=== PATIENT | female | born 1995 | race Hispanic/Latino ===

== ENCOUNTER 2022-03-10 19:53 | Inpatient (IN) | payer OTHER ==
[2022-03-10] MEDS ORDERED: ASPIRIN 325 MG TAB PO ONE (20:30)
[2022-03-10] MEDS ORDERED: ONDANSETRON 4 MG/2 ML INJ IV ONE (20:40)
[2022-03-10] MEDS ORDERED: HYDROmorphone 1 MG/1 ML INJ IV ONE (20:40)
[2022-03-10] MEDS ORDERED: SODIUM CHLORIDE 0.9% 1000 ML 1,000 ML IV ONE (20:42)
--- NOTE | 2022-03-10 20:42 | Emergency Department Report ---
ED Abdominal Pain HPI - General Chief Complaint: Arrhythmia/Palpitations Stated Complaint: SENT FROM DR VARELA PUI?: No Time Seen by Provider: 03/10/22 20:37 Source: patient, family Mode of arrival: Ambulatory Limitations: No Limitations - History of Present Illness Initial Comments: Patient is a 27-year-old female presents emergency room for bilateral flank pain, UTI symptoms, dysuria, fever. Patient states that her symptoms started this morning at 9 AM. Patient states her symptoms worsen. Patient states she went to urgent care at 6 PM and the patient had an EKG because of her heart rate done and a showed A. fib RVR. Patient presented with the EKG from the urgent care. Patient states she had a history of A. fib when she was 18 years old but never required treatment. Patient denies chest pain or shortness of breath. Patient denies recent travel. Patient denies recent international travel. Patient denies exposure to the novel coronavirus. Patient denies sick contacts. . Patient denies cough. Patient denies coming in contact with anybody with symptoms of the novel coronavirus. MD Complaint: abdominal pain -: Sudden Location: L flank, R flank Radiation: none Migration to: no migration Severity: severe Severity scale (0 -10): 10 Quality: stabbing Consistency: constant Improves With: rest Worsens With: movement Associated Symptoms: nausea, vomiting, diarrhea, fever, chills, dysuria. denies: constipation, hematemesis, hematochezia, melena, hematuria, syncope Treatments Prior to Arrival: NSAIDs - Related Data LMP (females 10-50): last week Allergies Allergy/AdvReac Type Severity Reaction Status Date / Time No Known Allergies Allergy Verified 03/10/22 21:24 ED Review of Systems ROS: Stated complaint: SENT FROM DR VARELA Other details as noted in HPI Constitutional: denies: chills, fever Eyes: denies: eye pain, eye discharge, vision change ENT: denies: ear pain, throat pain Respiratory: denies: cough, shortness of breath, wheezing Cardiovascular: denies: chest pain, palpitations Endocrine: no symptoms reported Gastrointestinal: as per HPI, abdominal pain, nausea, vomiting Genitourinary: as per HPI, dysuria. denies: urgency, discharge Musculoskeletal: denies: back pain, joint swelling, arthralgia Skin: denies: rash, lesions Neurological: denies: headache, weakness, paresthesias Psychiatric: denies: anxiety, depression Hematological/Lymphatic: denies: easy bleeding, easy bruising ED Past Medical Hx - Past Medical History Previous Medical History?: Yes Additional medical history: A. fib - Surgical History Past Surgical History?: No - Family History Family history: no significant - Social History Smoking Status: Never Smoker Substance Use Type: Alcohol, Marijuana ED Physical Exam - General Limitations: No Limitations General appearance: alert, in no apparent distress - Head Head exam: Present: atraumatic, normocephalic - Eye Eye exam: Present: normal appearance - ENT ENT exam: Present: mucous membranes moist - Neck Neck exam: Present: normal inspection - Respiratory Respiratory exam: Present: normal lung sounds bilaterally. Absent: respiratory distress - Cardiovascular Cardiovascular Exam: Present: regular rate, normal rhythm. Absent: systolic murmur, diastolic murmur, rubs, gallop - GI/Abdominal GI/Abdominal exam: Present: soft, tenderness, normal bowel sounds. Absent: distended, guarding, rebound - Extremities Exam Extremities exam: Present: normal inspection - Back Exam Back exam: Present: normal inspection - Neurological Exam Neurological exam: Present: alert, oriented X3 - Psychiatric Psychiatric exam: Present: normal affect, normal mood - Skin Skin exam: Present: warm, dry, intact, normal color. Absent: rash ED Course Vital Signs 03/10/22 03/10/22 03/10/22 19:56 19:59 20:02 Temperature 100.0 F H 100.0 F H 100.0 F H Pulse Rate 129 H 137 H Respiratory 16 16 Rate Blood Pressure 147/103 O2 Sat by Pulse 97 97 Oximetry - Reevaluation(s) Reevaluation #1: Patient went back into A. fib RVR. Patient's A. fib RVR sustained. Patient will be given Cardizem push and a Cardizem drip. 03/10/22 21:32 Reevaluation #2: Patient on stone mason. Patient is in and out of A. fib RVR. Patient given Cardizem and patient went into a sinus tachycardia. Patient placed on a Cardizem drip. Patient given fluids as well. I personally observed the stone mason for 4 minutes while the patient was being given Cardizem and fluids. 03/10/22 22:01 Reevaluation #3: Patient states she is feeling better. Patient's heart rate is 105. Patient's blood pressure stable. Patient still receiving fluids. I discussed all results with patient. I discussed plan of care with patient. Patient agrees with plan of care and admission. Patient to be admitted to the hospitalist service. 03/10/22 23:48 - Consultations Consultation #1: Hospitalist consulted for admission. Hospitalist to admit patient. 03/10/22 23:40 I discussed the updates with the hospitalist. Hospitalist agrees and wants the patient to be given 30 mg Cardizem p.o. now. 03/10/22 23:54 Consultation #2: I discussed the case with Dr. García, critical care. Dr. García recommends trying to turn the drip off by giving the patient 30 mg Cardizem every 6 hours. And if the patient stays in sinus rhythm then the patient does not require ICU admission. 03/10/22 23:53 ED Medical Decision Making - Lab Data Result diagrams: 03/10/22 20:35 03/10/22 20:35 - EKG Data -: EKG Interpreted by Me EKG shows normal: sinus rhythm, axis, intervals, QRS complexes, ST-T waves Rate: normal - Radiology Data Radiology results: report reviewed, image reviewed CT ABDOMEN AND PELVIS WITH CONTRAST INDICATION / CLINICAL INFORMATION: rosie flank pain. TECHNIQUE: Axial CT images were obtained through the abdomen and pelvis after 100 cc Omnipaque [address] scans at this location are performed using CT dose reduction for ALARA by means of automated exposure control. COMPARISON: None available. FINDINGS: LOWER CHEST: No significant abnormality. LIVER: Steatosis is seen throughout the liver without other significant abnormalities. GALLBLADDER: No significant abnormality. BILE DUCTS: No significant abnormality. PANCREAS: No significant abnormality. SPLEEN: No significant abnormality. ADRENALS: No significant abnormality. RIGHT KIDNEY/URETER: No significant abnormality. LEFT KIDNEY/URETER: No significant abnormality. STOMACH/SMALL BOWEL: No significant abnormality. COLON: No significant abnormality. APPENDIX: No significant abnormality. PERITONEUM: No free fluid. No free air. No fluid collection. LYMPH NODES: No significant adenopathy. VASCULATURE: No significant abnormality. URINARY BLADDER: No significant abnormality. REPRODUCTIVE ORGANS: Multiple follicles are seen in the left ovary. A septated right ovarian cyst versus 2 adjacent right ovarian follicles measures up to 4.1 x 3.5 cm. No other significant abnormality. ADDITIONAL FINDINGS: None. BONES: No significant abnormality IMPRESSION: 1. No acute findings to explain the patient's flank pain. 2. Additional findings as above. XR chest 1V ap INDICATION / CLINICAL INFORMATION: irregular heart rate. COMPARISON: None available. FINDINGS: SUPPORT DEVICES: None. HEART /PULMONARY VASCULATURE: No significant abnormality. LUNGS / PLEURA: No significant pulmonary or pleural abnormality. No pneumothorax. IMPRESSION: 1. No acute findings. - Medical Decision Making Patient is a 27-year-old female who presents emergency room with complaints of fever, flank pain, diarrhea, nausea, vomiting. Patient was seen at a urgent care prior to coming to emergency room. Patient was found to have A. fib RVR urgent care. Patient was sent to the emergency room for evaluation. Patient was in sinus tach initially in the ER. Patient then went back into A. fib RVR and the patient was given Cardizem push and placed on a Cardizem drip. Patient then converted to a sinus tachycardia and the patient's heart rate returned to normal after receiving fluids. Patient had labs done which were essentially un remarkable. Patient's TSH was negative. Patient lactic acid was negative. Patient's WBC was negative. Patient's urine was normal except for hematuria. Patient had a CT of the abdomen pelvis which was negative for acute findings. Patient's vital signs axis with gastroenteritis, nausea, vomiting, diarrhea. Patient admitted to the hospitalist service for further evaluation treatment. The hospitalist SI discussed the case with Dr. García for possible admission to the ICU. Dr. García recommends the patient be converted to p.o. Cardizem and monitored on a cardiac floor. Hospitalist updated with the recommendations. Critical care time documented due to the multiple reassessments, prolonged time at the bedside, interpretation of diagnostics and labs and discussion with consultants.. - Differential Diagnosis Flank pain, UTI, pyelonephritis, gastroenteritis, N/V/D Critical Care Time: Yes Critical care time in (mins) excluding proc time.: 35 Critical care attestation.: If time is entered above; I have spent that time in minutes in the direct care of this critically ill patient, excluding procedure time. Critical Care Time: 35 minutes ED Disposition Clinical Impression: Bilateral flank pain, Dysuria, Atrial fibrillation with RVR, Gastroenteritis Fever Qualifiers: Fever type: unspecified Qualified Code(s): R50.9 - Fever, unspecified Diarrhea Qualifiers: Diarrhea type: unspecified type Qualified Code(s): R19.7 - Diarrhea, unspecified Disposition: 09 ADMITTED INPATIENT Is pt being admited?: Yes Does the pt Need Aspirin: No Condition: Critical Time of Disposition: 23:54
[2022-03-10] MEDS ORDERED: cefTRIAXone/NS 2 GM/100 ML 2 GM/100 ML BAG IV ONE (20:44)
[2022-03-10] MEDS ORDERED: SODIUM CHLORIDE 0.9% 1000 ML IV SOLN IV ONE (20:45)
[2022-03-10] MEDS ORDERED: dilTIAZem 25 MG/5 ML INJ IV ONE (21:22)
[2022-03-10 21:32] LABS: Alanine Aminotransferase 48 units/L (7-56); Albumin 4.8 g/dL (3.9-5); Blood Urea Nitrogen 15 mg/dL (7-17); Calcium 8.6 mg/dL (8.4-10.2); Hemolysis Index 1
[2022-03-10 21:33] LABS: BUN/Creatinine Ratio 30
[2022-03-10 21:43] LABS: Hematocrit 43.3 % (30.3-42.9); Hemoglobin 15.1 gm/dl (10.1-14.3); Mean Corpuscular HGB Conc 35 % (30-34); Mean Corpuscular Volume 89 fl (79-97); Platelet Count 152 K/mm3 (140-440); Red Blood Count 4.85 M/mm3 (3.65-5.03); Red Cell Distribution Width 12.8 % (13.2-15.2)
--- NOTE | 2022-03-10 21:52 | XRay Report ---
XR chest 1V ap INDICATION / CLINICAL INFORMATION: irregular heart rate. COMPARISON: None available. FINDINGS: SUPPORT DEVICES: None. HEART /PULMONARY VASCULATURE: No significant abnormality. LUNGS / PLEURA: No significant pulmonary or pleural abnormality. No pneumothorax. IMPRESSION: 1. No acute findings. Signer Name: Jeremi Layton MD Signed: 03/10/2022 9:48 PM Workstation Name: [id number]
[2022-03-10] MEDS ORDERED: dilTIAZem/D5W 100 MG/100 ML BAG IV SCH (22:00)
[2022-03-10 22:01] LABS: Bilirubin,Urine NEG (Negative); Blood,Urine MOD (Negative); Color,Urine Yellow (Yellow); Protein,Urine <15 mg/dL mg/dL (Negative); Urobilinogen,Urine < 2.0 mg/dL (<2.0)
--- NOTE | 2022-03-10 23:06 | Cat Scan Report ---
CT ABDOMEN AND PELVIS WITH CONTRAST INDICATION / CLINICAL INFORMATION: rosie flank pain. TECHNIQUE: Axial CT images were obtained through the abdomen and pelvis after 100 cc Omnipaque [address] scans at this location are performed using CT dose reduction for ALARA by means of automated exposure control. COMPARISON: None available. FINDINGS: LOWER CHEST: No significant abnormality. LIVER: Steatosis is seen throughout the liver without other significant abnormalities. GALLBLADDER: No significant abnormality. BILE DUCTS: No significant abnormality. PANCREAS: No significant abnormality. SPLEEN: No significant abnormality. ADRENALS: No significant abnormality. RIGHT KIDNEY/URETER: No significant abnormality. LEFT KIDNEY/URETER: No significant abnormality. STOMACH/SMALL BOWEL: No significant abnormality. COLON: No significant abnormality. APPENDIX: No significant abnormality. PERITONEUM: No free fluid. No free air. No fluid collection. LYMPH NODES: No significant adenopathy. VASCULATURE: No significant abnormality. URINARY BLADDER: No significant abnormality. REPRODUCTIVE ORGANS: Multiple follicles are seen in the left ovary. A septated right ovarian cyst hilda ashvin 2 adjacent right ovarian follicles measures up to 4.1 x 3.5 cm. No other significant abnormality. ADDITIONAL FINDINGS: None. BONES: No significant abnormality IMPRESSION: 1. No acute findings to explain the patient's flank pain. 2. Additional findings as above. Signer Name: Josue Bashir MD Signed: 03/10/2022 11:01 PM Workstation Name: [id number]
[2022-03-10] MEDS ORDERED: dilTIAZem 30 MG TAB PO ONE (23:53)
[2022-03-10 23:55] LABS: Band Neutrophils # (Manual) 1.6 K/mm3; Basophils % (Manual) 0 % (0.0-1.8); Eosinophils % (Manual) 0 % (0.0-4.3); Total Cells Counted 100
[2022-03-10 23:56] LABS: Platelet Estimate Consistent w Auto
[2022-03-11] MEDS ORDERED: MORPHINE 4 MG/1 ML INJ IV PRN (02:06)
[2022-03-11] MEDS ORDERED: traMADol 50 MG TAB PO PRN (02:06)
--- NOTE | 2022-03-11 02:14 | History and Physical Report ---
History of Present Illness Date of examination: 03/11/22 Date of admission: 03/11/22 Chief complaint: Palpitation A. fib with RVR Abdominal pain History of present illness: 27-year-old female presents emergency room for bilateral flank pain, UTI symptoms, dysuria, fever. Patient states that her symptoms started this morning at 9 AM. Patient states her symptoms worsen. Patient states she went to urgent care at 6 PM and the patient had an EKG because of her heart rate done and a showed A. fib RVR. Patient presented with the EKG from the urgent care. Patient states she had a history of A. fib when she was 18 years old but never required treatment. Patient denies chest pain or shortness of breath. Subsequently patient was put on Cardizem drip. Also patient is started on Cardizem 30 mg p.o. every 6 hours. Patient heart rate is coming down to 115.'s were going to admit the patient to the telemetry. We put the patient on Cardizem,. Order echocardiogram and consult cardiology. Patient also getting IV fluid and Rocephin Past History Past Medical History: atrial fib Past Surgical History: No surgical history Social history: no significant social history Family history: no significant family history Medications and Allergies Allergies Allergy/AdvReac Type Severity Reaction Status Date / Time No Known Allergies Allergy Verified 03/10/22 21:24 Active Meds: Active Medications Acetaminophen (Acetaminophen 325 Mg Tab) 650 mg PO Q6H PRN PRN Reason: Pain, Mild (1-3) Diltiazem HCl (Diltiazem 30 Mg Tab) 30 mg PO Q6H CHRIS Heparin Sodium (Porcine) (Heparin 5,000 Unit/1 Ml Vial) 5,000 unit SUB-Q Q12HR CHRIS Diltiazem HCl (Cardizem/D5w 100mg/100ml) 100 mg in 100 mls @ 5 mls/hr IV TITR CHRIS; Protocol Sodium Chloride (Nacl 0.45% 1000 Ml) 1,000 mls @ 100 mls/hr IV DIRECT CHRIS Morphine Sulfate (Morphine 4 Mg/1 Ml Inj) 2 mg IV Q5MIN PRN PRN Reason: Chest Pain unrelieved by NTG Pantoprazole Sodium (Pantoprazole 40 Mg Tab) 40 mg PO QDAY CHRIS Sodium Chloride (Sodium Chloride 0.9% 10 Ml Flush Syringe) 10 ml IV PRN PRN PRN Reason: LINE FLUSH Tramadol HCl (Tramadol 50 Mg Tab) 50 mg PO Q6H PRN PRN Reason: Pain, Moderate (4-6) Review of Systems All systems: negative Cardiovascular: palpitations, lightheadedness Gastrointestinal: abdominal pain Genitourinary Female: flank pain, dysuria Exam - Constitutional Vitals: Temp Pulse Resp BP Pulse Ox 100.0 F H 137 H 16 147/103 97 03/10/22 20:02 03/10/22 20:02 03/10/22 20:02 03/10/22 20:02 03/10/22 20:02 General appearance: Present: no acute distress, well-nourished - EENT Eyes: Present: PERRL ENT: hearing intact, clear oral mucosa - Neck Neck: Present: supple, normal ROM - Respiratory Respiratory effort: normal Respiratory: bilateral: CTA, diminished - Cardiovascular Heart Sounds: Present: S1 & S2. Absent: rub, click - Extremities Extremities: pulses symmetrical, No edema Peripheral Pulses: within normal limits - Abdominal General gastrointestinal: Present: soft, non-tender, non-distended, normal bowel sounds Female genitourinary: Present: normal - Integumentary Integumentary: Present: clear, warm, dry - Musculoskeletal Musculoskeletal: gait normal, strength equal bilaterally - Psychiatric Psychiatric: appropriate mood/affect, intact judgment & insight - Neurologic Neurologic: CNII-XII intact, moves all extremities HEART Score - HEART Score Troponin: Troponin T < 0.010 ng/mL (0.00-0.029) 03/10/22 23:21 Results - Labs CBC & Chem 7: 03/10/22 20:35 03/10/22 20:35 Labs: Laboratory Last Values WBC 4.7 K/mm3 (4.5-11.0) 03/10/22 20:35 RBC 4.85 M/mm3 (3.65-5.03) 03/10/22 20:35 Hgb 15.1 gm/dl (10.1-14.3) H 03/10/22 20:35 Hct 43.3 % (30.3-42.9) H 03/10/22 20:35 MCV 89 fl (79-97) 03/10/22 20:35 MCH 31 pg (28-32) 03/10/22 20:35 MCHC 35 % (30-34) H 03/10/22 20:35 RDW 12.8 % (13.2-15.2) L 03/10/22 20:35 Plt Count 152 K/mm3 (140-440) 03/10/22 20:35 Add Manual Diff Complete 03/10/22 20:35 Total Counted 100 03/10/22 20:35 Seg Neutrophils % Services Account Manager 03/10/22 20:35 Seg Neuts % (Manual) 54.0 % (40.0-70.0) 03/10/22 20:35 Band Neutrophils % 35.0 % 03/10/22 20:35 Lymphocytes % (Manual) 4.0 % (13.4-35.0) L 03/10/22 20:35 Reactive Lymphs % (Man) 0 % 03/10/22 20:35 Monocytes % (Manual) 4.0 % (0.0-7.3) 03/10/22 20:35 Eosinophils % (Manual) 0 % (0.0-4.3) 03/10/22 20:35 Basophils % (Manual) 0 % (0.0-1.8) 03/10/22 20:35 Metamyelocytes % 2.0 % 03/10/22 20:35 Myelocytes % 1.0 % 03/10/22 20:35 Promyelocytes % 0 % 03/10/22 20:35 Blast Cells % 0 % 03/10/22 20:35 Nucleated RBC % Not Reportable 03/10/22 20:35 Seg Neutrophils # Man 2.5 K/mm3 (1.8-7.7) 03/10/22 20:35 Band Neutrophils # 1.6 K/mm3 03/10/22 20:35 Lymphocytes # (Manual) 0.2 K/mm3 (1.2-5.4) L 03/10/22 20:35 Abs React Lymphs (Man) 0.0 K/mm3 03/10/22 20:35 Monocytes # (Manual) 0.2 K/mm3 (0.0-0.8) 03/10/22 20:35 Eosinophils # (Manual) 0.0 K/mm3 (0.0-0.4) 03/10/22 20:35 Basophils # (Manual) 0.0 K/mm3 (0.0-0.1) 03/10/22 20:35 Metamyelocytes # 0.1 K/mm3 03/10/22 20:35 Myelocytes # 0.0 K/mm3 03/10/22 20:35 Promyelocytes # 0.0 K/mm3 03/10/22 20:35 Blast Cells # 0.0 K/mm3 03/10/22 20:35 WBC Morphology Not Reportable 03/10/22 20:35 Hypersegmented Neuts Not Reportable 03/10/22 20:35 Hyposegmented Neuts Not Reportable 03/10/22 20:35 Hypogranular Neuts Not Reportable 03/10/22 20:35 Smudge Cells Not Reportable 03/10/22 20:35 Toxic Granulation Not Reportable 03/10/22 20:35 Toxic Vacuolation Not Reportable 03/10/22 20:35 Dohle Bodies Not Reportable 03/10/22 20:35 Pelger-Huet Anomaly Not Reportable 03/10/22 20:35 Lida Rods Not Reportable 03/10/22 20:35 Platelet Estimate Consistent w auto 03/10/22 20:35 Clumped Platelets Not Reportable 03/10/22 20:35 Plt Clumps, EDTA Not Reportable 03/10/22 20:35 Large Platelets Not Reportable 03/10/22 20:35 Giant Platelets Not Reportable 03/10/22 20:35 Platelet Satelliting Not Reportable 03/10/22 20:35 Plt Morphology Comment Not Reportable 03/10/22 20:35 RBC Morphology Not Reportable 03/10/22 20:35 Dimorphic RBCs Not Reportable 03/10/22 20:35 Polychromasia Not Reportable 03/10/22 20:35 Hypochromasia Not Reportable 03/10/22 20:35 Poikilocytosis Not Reportable 03/10/22 20:35 Anisocytosis Not Reportable 03/10/22 20:35 Microcytosis Few 03/10/22 20:35 Macrocytosis Not Reportable 03/10/22 20:35 Spherocytes Not Reportable 03/10/22 20:35 Pappenheimer Bodies Not Reportable 03/10/22 20:35 Sickle Cells Not Reportable 03/10/22 20:35 Target Cells Not Reportable 03/10/22 20:35 Tear Drop Cells Not Reportable 03/10/22 20:35 Ovalocytes Not Reportable 03/10/22 20:35 Helmet Cells Not Reportable 03/10/22 20:35 [place] Bodies Not Reportable 03/10/22 20:35 Veblen Rings Not Reportable 03/10/22 20:35 Danie Cells Not Reportable 03/10/22 20:35 Bite Cells Not Reportable 03/10/22 20:35 Crenated Cell Not Reportable 03/10/22 20:35 Elliptocytes Not Reportable 03/10/22 20:35 Acanthocytes (Spur) Not Reportable 03/10/22 20:35 Rouleaux Not Reportable 03/10/22 20:35 Hemoglobin C Crystals Not Reportable 03/10/22 20:35 Schistocytes Not Reportable 03/10/22 20:35 Malaria parasites Not Reportable 03/10/22 20:35 Ari Bodies Not Reportable 03/10/22 20:35 Hem Pathologist Commnt No 03/10/22 20:35 Sodium 134 mmol/L (137-145) L 03/10/22 20:35 Potassium 3.6 mmol/L (3.6-5.0) 03/10/22 20:35 Chloride 95.6 mmol/L (98-107) L 03/10/22 20:35 Carbon Dioxide 22 mmol/L (22-30) 03/10/22 20:35 Anion Gap 20 mmol/L 03/10/22 20:35 BUN 15 mg/dL (7-17) 03/10/22 20:35 Creatinine 0.5 mg/dL (0.6-1.2) L 03/10/22 20:35 Estimated GFR > 60 ml/min 03/10/22 20:35 BUN/Creatinine Ratio 30 % 03/10/22 20:35 Glucose 117 mg/dL (65-100) H 03/10/22 20:35 Lactic Acid 1.10 mmol/L (0.7-2.0) 03/10/22 20:59 Calcium 8.6 mg/dL (8.4-10.2) 03/10/22 20:35 Total Bilirubin 0.60 mg/dL (0.1-1.2) 03/10/22 20:35 AST 36 units/L (5-40) 03/10/22 20:35 ALT 48 units/L (7-56) 03/10/22 20:35 Alkaline Phosphatase 98 units/L (35-129) 03/10/22 20:35 Troponin T < 0.010 ng/mL (0.00-0.029) 03/10/22 23:21 Total Protein 7.1 g/dL (6.3-8.2) 03/10/22 20:35 Albumin 4.8 g/dL (3.9-5) 03/10/22 20:35 Albumin/Globulin Ratio 2.1 % 03/10/22 20:35 TSH 0.563 mlU/mL (0.270-4.200) 03/10/22 20:35 HCG, Qual Negative (Negative) 03/10/22 20:35 Urine Color Yellow (Yellow) 03/10/22 Unknown Urine Turbidity Clear (Clear) 03/10/22 Unknown Urine pH 6.0 (5.0-7.0) 03/10/22 Unknown Ur Specific [place] 1.015 (1.003-1.030) 03/10/22 Unknown Urine Protein <15 mg/dl mg/dL (Negative) 03/10/22 Unknown Urine Glucose (UA) Neg mg/dL (Negative) 03/10/22 Unknown Urine Ketones Neg mg/dL (Negative) 03/10/22 Unknown Urine Blood Mod (Negative) 03/10/22 Unknown Urine Nitrite Neg (Negative) 03/10/22 Unknown Urine Bilirubin Neg (Negative) 03/10/22 Unknown Urine Urobilinogen < 2.0 mg/dL (<2.0) 03/10/22 Unknown Ur Leukocyte Esterase Neg (Negative) 03/10/22 Unknown Urine WBC (Auto) 1.0 /HPF (0.0-6.0) 03/10/22 Unknown Urine RBC (Auto) 3.0 /HPF (0.0-6.0) 03/10/22 Unknown U Epithel Cells (Auto) 1.0 /HPF (0-13.0) 03/10/22 Unknown - Imaging and Cardiology Chest x-ray: report reviewed CT scan - abdomen: report reviewed Assessment and Plan VTE prophylaxis?: Chemical Plan of care discussed with patient/family: Yes - Patient Problems (1) Atrial fibrillation with RVR Current Visit: Yes Status: Acute Plan to address problem: Admit the patient to the medical telemetry. Cardizem drip is discontinued. Cardizem 30 mg p.o. every 6 hours. Echocardiogram. Serial cardiac enzymes. Cardiology evaluation (2) Bilateral flank pain Current Visit: Yes Status: Acute Plan to address problem: Tylenol 650 mg p.o. every 6 hours as needed. Normal saline at the rate of 100 cc/h. Rocephin 2 g IV daily. We send the urine for culture (3) Dysuria Current Visit: Yes Status: Acute Plan to address problem: Tylenol 650 mg p.o. every 6 hours as needed. Normal saline at the rate of 100 cc/h. Rocephin 2 g IV daily. We send the urine for culture (4) Fever Current Visit: Yes Status: Acute Qualifiers: Fever type: unspecified Qualified Code(s): R50.9 - Fever, unspecified Plan to address problem: Tylenol 650 mg p.o. every 6 hours as needed. Normal saline at the rate of 100 cc/h. Rocephin 2 g IV daily. (5) Gastroenteritis Current Visit: Yes Status: Acute Plan to address problem: Normal saline at the rate of 100 cc/h. Protonix 40 mg p.o. daily. Zofran 4 mg IV every 6 hours as needed. We will monitor the patient closely (6) DVT prophylaxis Current Visit: Yes Status: Acute Plan to address problem: Heparin 5000 units subcu every 12 hours for DVT prophylaxis. Protonix 40 mg p.o. daily for GI prophylaxis. Patient is a full code
[2022-03-11] MEDS: ACETAMINOPHEN 325 MG TAB PO PRN ×2 (03:00→10:08)
[2022-03-11] MEDS: dilTIAZem 30 MG TAB PO SCH ×4 (03:00→22:10)
[2022-03-11] MEDS ORDERED: SODIUM CHLORIDE 0.45% 1000 ML 1,000 ML IV SCH (03:00)
[2022-03-11] MEDS: cefTRIAXone/NS 2 GM/100 ML 2 GM/100 ML BAG IV SCH ×2 (03:00→04:55)
[2022-03-11 06:25] LABS: Basophils % (Auto) 0.1 % (0.0-1.8); Eosinophils % (Auto) 0.1 % (0.0-4.3); Hematocrit 40.4 % (30.3-42.9); Lymphocytes # (Auto) 0.5 K/mm3 (1.2-5.4); Lymphocytes % (Auto) 12.9 % (13.4-35.0); Mean Corpuscular HGB Conc 35 % (30-34); Mean Corpuscular Volume 89 fl (79-97); Monocytes # (Auto) 0.3 K/mm3 (0.0-0.8); Monocytes % (Auto) 7.1 % (0.0-7.3); Platelet Count 136 K/mm3 (140-440); Red Blood Count 4.54 M/mm3 (3.65-5.03)
[2022-03-11 06:37] LABS: Blood Urea Nitrogen 7 mg/dL (7-17); Calcium 7.8 mg/dL (8.4-10.2); Hemolysis Index 1
[2022-03-11 06:50] LABS: BUN/Creatinine Ratio 18
--- NOTE | 2022-03-11 08:09 | Progress Note ---
Assessment and Plan Assessment and plan: -- Atrial fibrillation with RVR Current Visit: Yes Status: Acute Continue Cardizem drip is discontinued. Cardizem 30 mg p.o. every 6 hours. Follow echocardiogram for LV function Before considering anticoagulation per Chad2 scores serial cardiac enzymes. Cardiology evaluation --Severe hypokalemia; potassium 2.7 Current Visit: Yes Status: Acute Replenished with oral and IV KCl Closely monitor electrolytes Check magnesium levels --Hyponatremia; Current Visit: Yes Status: Acute Replenished with gentle hydration with normal saline Closely monitor electrolytes -- bilateral flank pain Current Visit: Yes Status: Acute CT abdomen and pelvis no acute abnormality noted Except some ovarian follicles Pain medications, patient was already started on empiric Rocephin Follow cultures --Urinary symptoms/possible urinary tract infection Current Visit: Yes Status: Acute Low-grade fever, suprapubic discomfort, empiric Rocephin Follow urine cultures --Febrile illness Current Visit: Yes Status: Acute Tylenol 650 mg p.o. every 6 hours as needed. Normal saline at the rate of 100 cc/h. Rocephin 2 g IV daily. --Acute gastroenteritis Current Visit: Yes Status: Acute Normal saline at the rate of 100 cc/h. Protonix 40 mg p.o. daily. Zofran 4 mg IV every 6 hours as needed. We will monitor the patient closely --DVT prophylaxis Current Visit: Yes Status: Acute Subcu heparin We will closely monitor the patient and adjust management as needed Plan of care reviewed with the patient and her nurse Prolonged inpatient care I spent 35 minutes --Advance care plan; History Interval history: I have seen and examined the patient at the bedside this morning Patient's chart and medications reviewed Patient was admitted with A. ino with rapid ventricular rate This morning patient's heart rate between 93 and 107 Patient denies any chest pain or palpitation Complains of generalized weakness Vital signs reviewed Hospitalist Physical - Constitutional Vitals: Temp Pulse Resp BP Pulse Ox 100.6 F H 107 H 18 129/77 97 03/11/22 04:43 03/11/22 04:43 03/11/22 04:43 03/11/22 04:43 03/11/22 07:53 General appearance: Present: no acute distress, well-nourished - EENT Eyes: Present: PERRL, EOM intact - Neck Neck: Present: supple, normal ROM - Respiratory Respiratory effort: normal Respiratory: bilateral: diminished, negative: rales, rhonchi, wheezing - Cardiovascular Rhythm: regular Heart Sounds: Present: S1 & S2 - Extremities Extremities: no ischemia, No edema - Abdominal General gastrointestinal: soft, non-tender, non-distended, normal bowel sounds - Integumentary Integumentary: Present: clear, warm - Psychiatric Psychiatric: appropriate mood/affect, cooperative - Neurologic Neurologic: moves all extremities HEART Score - HEART Score Troponin: Troponin T < 0.010 ng/mL (0.00-0.029) 03/11/22 05:21 Results - Labs CBC & Chem 7: 03/11/22 05:21 03/11/22 05:21 Labs: Laboratory Last Values WBC 3.7 K/mm3 (4.5-11.0) L 03/11/22 05:21 RBC 4.54 M/mm3 (3.65-5.03) 03/11/22 05:21 Hgb 14.0 gm/dl (10.1-14.3) 03/11/22 05:21 Hct 40.4 % (30.3-42.9) 03/11/22 05:21 MCV 89 fl (79-97) 03/11/22 05:21 MCH 31 pg (28-32) 03/11/22 05:21 MCHC 35 % (30-34) H 03/11/22 05:21 RDW 13.0 % (13.2-15.2) L 03/11/22 05:21 Plt Count 136 K/mm3 (140-440) L 03/11/22 05:21 Lymph % (Auto) 12.9 % (13.4-35.0) L 03/11/22 05:21 [place] % (Auto) 7.1 % (0.0-7.3) 03/11/22 05:21 Eos % (Auto) 0.1 % (0.0-4.3) 03/11/22 05:21 Baso % (Auto) 0.1 % (0.0-1.8) 03/11/22 05:21 Lymph # (Auto) 0.5 K/mm3 (1.2-5.4) L 03/11/22 05:21 [place] # (Auto) 0.3 K/mm3 (0.0-0.8) 03/11/22 05:21 Eos # (Auto) 0.0 K/mm3 (0.0-0.4) 03/11/22 05:21 Baso # (Auto) 0.0 K/mm3 (0.0-0.1) 03/11/22 05:21 Add Manual Diff Complete 03/10/22 20:35 Total Counted 100 03/10/22 20:35 Seg Neutrophils % 79.8 % (40.0-70.0) H 03/11/22 05:21 Seg Neuts % (Manual) 54.0 % (40.0-70.0) 03/10/22 20:35 Band Neutrophils % 35.0 % 03/10/22 20:35 Lymphocytes % (Manual) 4.0 % (13.4-35.0) L 03/10/22 20:35 Reactive Lymphs % (Man) 0 % 03/10/22 20:35 Monocytes % (Manual) 4.0 % (0.0-7.3) 03/10/22 20:35 Eosinophils % (Manual) 0 % (0.0-4.3) 03/10/22 20:35 Basophils % (Manual) 0 % (0.0-1.8) 03/10/22 20:35 Metamyelocytes % 2.0 % 03/10/22 20:35 Myelocytes % 1.0 % 03/10/22 20:35 Promyelocytes % 0 % 03/10/22 20:35 Blast Cells % 0 % 03/10/22 20:35 Nucleated RBC % Not Reportable 03/10/22 20:35 Seg Neutrophils # 2.9 K/mm3 (1.8-7.7) 03/11/22 05:21 Seg Neutrophils # Man 2.5 K/mm3 (1.8-7.7) 03/10/22 20:35 Band Neutrophils # 1.6 K/mm3 03/10/22 20:35 Lymphocytes # (Manual) 0.2 K/mm3 (1.2-5.4) L 03/10/22 20:35 Abs React Lymphs (Man) 0.0 K/mm3 03/10/22 20:35 Monocytes # (Manual) 0.2 K/mm3 (0.0-0.8) 03/10/22 20:35 Eosinophils # (Manual) 0.0 K/mm3 (0.0-0.4) 03/10/22 20:35 Basophils # (Manual) 0.0 K/mm3 (0.0-0.1) 03/10/22 20:35 Metamyelocytes # 0.1 K/mm3 03/10/22 20:35 Myelocytes # 0.0 K/mm3 03/10/22 20:35 Promyelocytes # 0.0 K/mm3 03/10/22 20:35 Blast Cells # 0.0 K/mm3 03/10/22 20:35 WBC Morphology Not Reportable 03/10/22 20:35 Hypersegmented Neuts Not Reportable 03/10/22 20:35 Hyposegmented Neuts Not Reportable 03/10/22 20:35 Hypogranular Neuts Not Reportable 03/10/22 20:35 Smudge Cells Not Reportable 03/10/22 20:35 Toxic Granulation Not Reportable 03/10/22 20:35 Toxic Vacuolation Not Reportable 03/10/22 20:35 Dohle Bodies Not Reportable 03/10/22 20:35 Pelger-Huet Anomaly Not Reportable 03/10/22 20:35 Lida Rods Not Reportable 03/10/22 20:35 Platelet Estimate Consistent w auto 03/10/22 20:35 Clumped Platelets Not Reportable 03/10/22 20:35 Plt Clumps, EDTA Not Reportable 03/10/22 20:35 Large Platelets Not Reportable 03/10/22 20:35 Giant Platelets Not Reportable 03/10/22 20:35 Platelet Satelliting Not Reportable 03/10/22 20:35 Plt Morphology Comment Not Reportable 03/10/22 20:35 RBC Morphology Not Reportable 03/10/22 20:35 Dimorphic RBCs Not Reportable 03/10/22 20:35 Polychromasia Not Reportable 03/10/22 20:35 Hypochromasia Not Reportable 03/10/22 20:35 Poikilocytosis Not Reportable 03/10/22 20:35 Anisocytosis Not Reportable 03/10/22 20:35 Microcytosis Few 03/10/22 20:35 Macrocytosis Not Reportable 03/10/22 20:35 Spherocytes Not Reportable 03/10/22 20:35 Pappenheimer Bodies Not Reportable 03/10/22 20:35 Sickle Cells Not Reportable 03/10/22 20:35 Target Cells Not Reportable 03/10/22 20:35 Tear Drop Cells Not Reportable 03/10/22 20:35 Ovalocytes Not Reportable 03/10/22 20:35 Helmet Cells Not Reportable 03/10/22 20:35 Mcclain-Nunda Bodies Not Reportable 03/10/22 20:35 [place] Rings Not Reportable 03/10/22 20:35 Danie Cells Not Reportable 03/10/22 20:35 Bite Cells Not Reportable 03/10/22 20:35 Crenated Cell Not Reportable 03/10/22 20:35 Elliptocytes Not Reportable 03/10/22 20:35 Acanthocytes (Spur) Not Reportable 03/10/22 20:35 Rouleaux Not Reportable 03/10/22 20:35 Hemoglobin C Crystals Not Reportable 03/10/22 20:35 Schistocytes Not Reportable 03/10/22 20:35 Malaria parasites Not Reportable 03/10/22 20:35 Ari Bodies Not Reportable 03/10/22 20:35 Hem Pathologist Commnt No 03/10/22 20:35 Sodium 132 mmol/L (137-145) L 03/11/22 05:21 Potassium 2.7 mmol/L (3.6-5.0) L* D 03/11/22 05:21 Chloride 96.4 mmol/L (98-107) L 03/11/22 05:21 Carbon Dioxide 20 mmol/L (22-30) L 03/11/22 05:21 Anion Gap 18 mmol/L 03/11/22 05:21 BUN 7 mg/dL (7-17) 03/11/22 05:21 Creatinine 0.4 mg/dL (0.6-1.2) L 03/11/22 05:21 Estimated GFR > 60 ml/min 03/11/22 05:21 BUN/Creatinine Ratio 18 % 03/11/22 05:21 Glucose 111 mg/dL (65-100) H 03/11/22 05:21 Lactic Acid 1.10 mmol/L (0.7-2.0) 03/10/22 20:59 Calcium 7.8 mg/dL (8.4-10.2) L 03/11/22 05:21 Total Bilirubin 0.60 mg/dL (0.1-1.2) 03/10/22 20:35 AST 36 units/L (5-40) 03/10/22 20:35 ALT 48 units/L (7-56) 03/10/22 20:35 Alkaline Phosphatase 98 units/L (35-129) 03/10/22 20:35 Troponin T < 0.010 ng/mL (0.00-0.029) 03/11/22 05:21 Total Protein 7.1 g/dL (6.3-8.2) 03/10/22 20:35 Albumin 4.8 g/dL (3.9-5) 03/10/22 20:35 Albumin/Globulin Ratio 2.1 % 03/10/22 20:35 TSH 0.563 mlU/mL (0.270-4.200) 03/10/22 20:35 HCG, Qual Negative (Negative) 03/10/22 20:35 Urine Color Yellow (Yellow) 03/10/22 Unknown Urine Turbidity Clear (Clear) 03/10/22 Unknown Urine pH 6.0 (5.0-7.0) 03/10/22 Unknown Ur Specific [place] 1.015 (1.003-1.030) 03/10/22 Unknown Urine Protein <15 mg/dl mg/dL (Negative) 03/10/22 Unknown Urine Glucose (UA) Neg mg/dL (Negative) 03/10/22 Unknown Urine Ketones Neg mg/dL (Negative) 03/10/22 Unknown Urine Blood Mod (Negative) 03/10/22 Unknown Urine Nitrite Neg (Negative) 03/10/22 Unknown Urine Bilirubin Neg (Negative) 03/10/22 Unknown Urine Urobilinogen < 2.0 mg/dL (<2.0) 03/10/22 Unknown Ur Leukocyte Esterase Neg (Negative) 03/10/22 Unknown Urine WBC (Auto) 1.0 /HPF (0.0-6.0) 03/10/22 Unknown Urine RBC (Auto) 3.0 /HPF (0.0-6.0) 03/10/22 Unknown U Epithel Cells (Auto) 1.0 /HPF (0-13.0) 03/10/22 Unknown Microbiology: Microbiology 03/10/22 20:59 Peripheral/Venous Blood Culture - Preliminary Culture in Progress 03/10/22 20:59 Peripheral/Venous Blood Culture - Preliminary Culture in Progress Lebron/IV: Voiding Method Toilet Active Medications - Current Medications Current Medications: Generic Name Dose Route Start Last Admin Trade Name Freq PRN Reason Stop Dose Admin Acetaminophen 650 mg 03/11/22 02:06 03/11/22 03:00 Acetaminophen 325 Mg Tab PO 650 mg Q6H PRN Administration Pain, Mild (1-3) Diltiazem HCl 30 mg 03/11/22 03:00 03/11/22 03:00 Diltiazem 30 Mg Tab PO 30 mg Q6H CHRIS Administration Heparin Sodium (Porcine) 5,000 unit 03/11/22 10:00 Heparin 5,000 Unit/1 Ml Vial SUB-Q Q12HR [facility]RIS Diltiazem HCl 100 mg in 100 mls @ 5 mls/hr 03/10/22 22:00 03/10/22 21:15 Cardizem/D5w 100mg/100ml IV 5 mg/hr TITR CHRIS 5 mls/hr Administration Protocol 5 MG/HR Sodium Chloride 1,000 mls @ 100 mls/hr 03/11/22 03:00 Nacl 0.45% 1000 Ml IV DIRECT [facility]RIS Ceftriaxone Sodium 2 gm in 100 mls @ 200 mls/hr 03/11/22 03:00 03/11/22 03:00 Rocephin/Ns 2 Gm/100 Ml IV 200 mls/hr Q24H CHRIS Administration Protocol Potassium Chloride 10 meq in 100 mls @ 100 mls/hr 03/11/22 08:00 Kcl 10meq/100ml IV 03/11/22 09:59 Q1H CHRIS Morphine Sulfate 2 mg 03/11/22 02:06 Morphine 4 Mg/1 Ml Inj IV Q5MIN PRN Chest Pain unrelieved by NTG Pantoprazole Sodium 40 mg 03/11/22 10:00 Pantoprazole 40 Mg Tab PO QDAY CHRIS Potassium Chloride 40 meq 03/11/22 08:00 Potassium Chloride Er 20 Meq Tab PO 03/11/22 11:01 Q3H CHRIS Sodium Chloride 10 ml 03/11/22 02:06 Sodium Chloride 0.9% 10 Ml Flush Syringe IV PRN PRN LINE FLUSH Tramadol HCl 50 mg 03/11/22 02:06 Tramadol 50 Mg Tab PO Q6H PRN Pain, Moderate (4-6)
[2022-03-11] MEDS ORDERED: PRISTIQ 50 MG PO SCH (10:00)
[2022-03-11] MEDS ORDERED: ATIVAN 0.5 MG PO SCH (10:00)
[2022-03-11] MEDS: LORazepam 0.5 MG TAB PO SCH (10:07)
[2022-03-11] MEDS: POTASSIUM CHLORIDE ER 20 MEQ TAB PO SCH ×2 (10:07→12:48)
[2022-03-11] MEDS: HEPARIN 5,000 UNIT/1 ML VIAL SUB-Q SCH ×2 (10:25→22:11)
[2022-03-11] MEDS: POTASSIUM CHLORIDE 10 MEQ 10 MEQ/100 ML BAG IV SCH ×2 (10:25→10:28)
[2022-03-11] MEDS: PANTOPRAZOLE 40 MG TAB PO SCH (10:27)
[2022-03-11] MEDS ORDERED: SODIUM CHLORIDE 0.45% 1000 ML 1,000 ML with POTASSIUM CHLORIDE 20 MEQ IV SCH (10:34)
[2022-03-11] MEDS ORDERED: dilTIAZem 30 MG TAB PO SCH ×2 (12:00→16:00)
[2022-03-11] MEDS: NACL 0.45%/KCL 20 MEQ 20 MEQ/1,000 ML BAG IV SCH ×2 (12:48→23:03)
--- NOTE | 2022-03-11 16:08 | Consultation ---
<[place] - Last Filed: 03/11/22 16:55> History of Present Illness Consult date: 03/11/22 Requesting physician: JESSY LEOS Consult reason: atrial fibrillation History of present illness: Patient is a 27-year-old female with no significant past medical history who presented with complaints of abdominal pain, bilateral flank pain, dysuria, and severe nausea that started yesterday AM. She reports approximately 20 episodes of NBNB emesis throughout the day yesterday. She initially thought she had food poisoning and presented to an urgent care center. Upon exam she was noted to be tachycardic. An ECG was subsequently done, which revealed atrial fibrillation with rapid ventricular response. As such, patient was referred to the ER for further evaluation. Patient denies any cardiac complaints. She does report being diagnosed with AF at age 18 but states she underwent a complete work-up as an outpatient at that time and was told nothing further needed to be done. She is not on oral anticoagulation. She was noted to be in rapid AF in the 120- 130bpm range upon arrival and was started on an IV Cardizem drip. She has since converted to sinus rhythm. In SR 80s on telemetry today. Past History Past Medical History: atrial fib Past Surgical History: No surgical history Social history: no significant social history Family history: no significant family history Medications and Allergies Allergies Allergy/AdvReac Type Severity Reaction Status Date / Time No Known Allergies Allergy Verified 03/10/22 21:24 Home Medications Medication Instructions Recorded Confirmed Last Taken Type Acetaminophen [Tylenol Extra 500 mg PO DAILY PRN 03/11/22 03/11/22 Unknown History Strength] Ativan 0.5 mg PO DAILY 03/11/22 03/11/22 Unknown History Pristiq 50 mg PO DAILY 03/11/22 03/11/22 Unknown History SEROquel XR 12.5 mg PO HS 03/11/22 03/11/22 Unknown History Active Meds: Active Medications Acetaminophen (Acetaminophen 325 Mg Tab) 650 mg PO Q6H PRN PRN Reason: Pain, Mild (1-3) Last Admin: 03/11/22 10:08 Dose: 650 mg Diltiazem HCl (Diltiazem 30 Mg Tab) 30 mg PO Q6HR CHRIS Last Admin: 03/11/22 12:48 Dose: 30 mg Heparin Sodium (Porcine) (Heparin 5,000 Unit/1 Ml Vial) 5,000 unit SUB-Q Q12HR [facility] Last Admin: 03/11/22 10:25 Dose: 5,000 unit Ceftriaxone Sodium (Rocephin/Ns 2 Gm/100 Ml) 2 gm in 100 mls @ 200 mls/hr IV Q24H [facility]; Protocol Last Admin: 03/11/22 03:00 Dose: 200 mls/hr Potassium Chloride/Sodium Chloride (Ns 0.45/Kcl 20meq) 20 meq in 1,000 mls @ 10 0 mls/hr IV DIRECT [facility] Last Admin: 03/11/22 12:48 Dose: 100 mls/hr Lorazepam (Lorazepam 0.5 Mg Tab) 0.5 mg PO DAILY [facility] Last Admin: 03/11/22 10:07 Dose: 0.5 mg Miscellaneous Medication (Pristiq) 50 mg PO DAILY [facility] Miscellaneous Medication (Seroquel Xr) 12.5 mg PO HS [facility] Morphine Sulfate (Morphine 4 Mg/1 Ml Inj) 2 mg IV Q5MIN PRN PRN Reason: Chest Pain unrelieved by NTG Pantoprazole Sodium (Pantoprazole 40 Mg Tab) 40 mg PO QDAY [facility] Last Admin: 03/11/22 10:27 Dose: 40 mg Sodium Chloride (Sodium Chloride 0.9% 10 Ml Flush Syringe) 10 ml IV PRN PRN PRN Reason: LINE FLUSH Tramadol HCl (Tramadol 50 Mg Tab) 50 mg PO Q6H PRN PRN Reason: Pain, Moderate (4-6) Review of Systems Constitutional: fever Ears, nose, mouth and throat: no nasal congestion, no sore throat Cardiovascular: no chest pain, no palpitations, no edema, no syncope, no lightheadedness, no shortness of breath Respiratory: no cough, no shortness of breath Gastrointestinal: abdominal pain, nausea, vomiting, no hematemesis Genitourinary Female: flank pain, dysuria Musculoskeletal: no neck stiffness, no neck pain Integumentary: no rash, no wounds Neurological: no parathesias, no seizures, no syncope, no headaches Endocrine: no cold intolerance, no heat intolerance Hematologic/Lymphatic: no easy bruising, no easy bleeding Allergic/Immunologic: no anaphylaxis Physical Examination Vital Signs Temp 100.0 F H 03/10/22 19:56 General appearance: no acute distress HEENT: Positive: EOMI, Normocephaly Neck: Positive: neck supple, trachea midline. Negative: JVD/HJR Cardiac: Positive: Reg Rate and Rhythm, S1/S2 Lungs: Positive: clear to auscultation Neuro: Positive: Grossly Intact Abdomen: Positive: Soft Skin: Negative: Rash Musculoskeletal: No Pain, Normal Range of Motion Extremities: Present: lower extr. pulses. Absent: edema Results 03/11/22 05:21 03/11/22 05:21 Cardiac Enzymes 03/10/22 Range/Units 20:35 AST 36 (5-40) units/L CBC 03/10/22 03/11/22 Range/Units 20:35 05:21 WBC 4.7 3.7 L (4.5-11.0) K/mm3 RBC 4.85 4.54 (3.65-5.03) M/mm3 Hgb 15.1 H 14.0 (10.1-14.3) gm/dl Hct 43.3 H 40.4 (30.3-42.9) % Plt Count 152 136 L (140-440) K/mm3 Lymph # (Auto) 0.5 L (1.2-5.4) K/mm3 [place] # (Auto) 0.3 (0.0-0.8) K/mm3 Eos # (Auto) 0.0 (0.0-0.4) K/mm3 Baso # (Auto) 0.0 (0.0-0.1) K/mm3 Comprehensive Metabolic Panel 03/10/22 03/11/22 Range/Units 20:35 05:21 Sodium 134 L 132 L (137-145) mmol/L Potassium 3.6 2.7 L* D (3.6-5.0) mmol/L Chloride 95.6 L 96.4 L (98-107) mmol/L Carbon Dioxide 22 20 L (22-30) mmol/L BUN 15 7 (7-17) mg/dL Creatinine 0.5 L 0.4 L (0.6-1.2) mg/dL Glucose 117 H 111 H (65-100) mg/dL Calcium 8.6 7.8 L (8.4-10.2) mg/dL AST 36 (5-40) units/L ALT 48 (7-56) units/L Alkaline Phosphatase 98 (35-129) units/L Total Protein 7.1 (6.3-8.2) g/dL Albumin 4.8 (3.9-5) g/dL - Imaging and Cardiology Echo: report reviewed (EF 50-55%, impaired LV relaxation) EKG: report reviewed, image reviewed - EKG Interpretation EKG: no acute changes EKG interpretations - Telemetry EKG Rhythm: Sinus Rhythm - EKG Sinus rhythms and dysrhythmias: sinus rhythm Ventricular dysrhythmias: ventricular premature com Assessment and Plan AF with RVR -AF 120-130s at admission -In the setting of significant electrolyte derangements secondary to multiple episodes of emesis -Converted to SR with IV Cardizem and maintaining SR 80s on tele today -Decrease PO Cardizem to 30mg q8h given borderline BP -Echo normal -[id number] Score 1 -Oral anticoagulation is not indicated at this time given low [id number] score and short AF duration < 24 hours -Will arrange 7-day Holter monitor as an outpatient -Cardiac status is otherwise stable Severe Hypokalemia -KCl and Mg repletion as per Primary Gastroenteritis -Mgmt per Primary ?UTI Patient has been seen in conjunction with Dr. Jaramillo, who agrees with the assessment and plan of care. - Patient Problems (1) Atrial fibrillation with RVR Current Visit: Yes Status: Acute (2) Gastroenteritis Current Visit: Yes Status: Acute <SILVIA JARAMILLO - Last Filed: 03/12/22 13:20> History of Present Illness History of present illness: Patient seen and examined by the nurse practitioner. Agree with assessment and plan Medications and Allergies Active Meds: Active Medications Acetaminophen (Acetaminophen 325 Mg Tab) 650 mg PO Q6H PRN PRN Reason: Pain, Mild (1-3) Last Admin: 03/11/22 10:08 Dose: 650 mg Diltiazem HCl (Diltiazem 30 Mg Tab) 30 mg PO Q8H [facility] Last Admin: 03/11/22 22:10 Dose: 30 mg Heparin Sodium (Porcine) (Heparin 5,000 Unit/1 Ml Vial) 5,000 unit SUB-Q Q12HR [facility] Last Admin: 03/12/22 09:22 Dose: 5,000 unit Ceftriaxone Sodium (Rocephin/Ns 2 Gm/100 Ml) 2 gm in 100 mls @ 200 mls/hr IV Q24H [facility]; Protocol Last Admin: 03/12/22 03:10 Dose: 100 mls/hr Potassium Chloride/Sodium Chloride (Ns 0.45/Kcl 20meq) 20 meq in 1,000 mls @ 100 mls/hr IV DIRECT [facility] Last Admin: 03/11/22 23:03 Dose: 100 mls/hr Lorazepam (Lorazepam 0.5 Mg Tab) 0.5 mg PO DAILY [facility] Last Admin: 03/12/22 09:49 Dose: Not Given Miscellaneous Medication (Pristiq) 50 mg PO DAILY [facility] Morphine Sulfate (Morphine 4 Mg/1 Ml Inj) 2 mg IV Q5MIN PRN PRN Reason: Chest Pain unrelieved by NTG Pantoprazole Sodium (Pantoprazole 40 Mg Tab) 40 mg PO QDAY [facility] Last Admin: 03/12/22 09:22 Dose: 40 mg Quetiapine Fumarate (Quetiapine 25 Mg Tab) 12.5 mg PO QHS [facility] Last Admin: 03/11/22 22:11 Dose: 12.5 mg Sodium Chloride (Sodium Chloride 0.9% 10 Ml Flush Syringe) 10 ml IV PRN PRN PRN Reason: LINE FLUSH Tramadol HCl (Tramadol 50 Mg Tab) 50 mg PO Q6H PRN PRN Reason: Pain, Moderate (4-6) Physical Examination Vital Signs Temp 100.0 F H 03/10/22 19:56 Results 03/11/22 05:21 03/12/22 09:59 Comprehensive Metabolic Panel 03/12/22 Range/Units 09:59 Sodium 140 D (137-145) mmol/L Potassium 3.6 D (3.6-5.0) mmol/L Chloride 103.9 (98-107) mmol/L Carbon Dioxide 22 (22-30) mmol/L BUN 4 L (7-17) mg/dL Creatinine 0.4 L (0.6-1.2) mg/dL Glucose 98 (65-100) mg/dL Calcium 8.3 L (8.4-10.2) mg/dL Assessment and Plan Patient seen and examined by the nurse practitioner agree with assessment and plan
[2022-03-11] MEDS ORDERED: QUETIAPINE PO SCH (22:00)
[2022-03-11] MEDS ORDERED: QUEtiapine 25 MG TAB PO SCH (22:00)
[2022-03-12] MEDS: cefTRIAXone/NS 2 GM/100 ML 2 GM/100 ML BAG IV SCH (03:10)
[2022-03-12] MEDS: HEPARIN 5,000 UNIT/1 ML VIAL SUB-Q SCH (09:22)
[2022-03-12] MEDS: PANTOPRAZOLE 40 MG TAB PO SCH (09:22)
[2022-03-12] MEDS: LORazepam 0.5 MG TAB PO SCH ×2 (09:22→09:49)
--- NOTE | 2022-03-12 09:35 | Progress Note ---
Assessment and Plan Assessment and plan: -- Atrial fibrillation with RVR Current Visit: Yes Status: Acute Continue Cardizem drip is discontinued. Cardizem 30 mg p.o. every 6 hours. Follow echocardiogram for LV function Before considering anticoagulation per Chad2 scores serial cardiac enzymes. Cardiology evaluation --Severe hypokalemia; potassium 2.7 Current Visit: Yes Status: Acute Replenished with oral and IV KCl Closely monitor electrolytes Check magnesium levels --Hyponatremia; Current Visit: Yes Status: Acute Replenished with gentle hydration with normal saline Closely monitor electrolytes -- bilateral flank pain Current Visit: Yes Status: Acute CT abdomen and pelvis no acute abnormality noted Except some ovarian follicles Pain medications, patient was already started on empiric Rocephin Follow cultures --Urinary symptoms/possible urinary tract infection Current Visit: Yes Status: Acute Low-grade fever, suprapubic discomfort, empiric Rocephin Follow urine cultures --Febrile illness Current Visit: Yes Status: Acute Tylenol 650 mg p.o. every 6 hours as needed. Normal saline at the rate of 100 cc/h. Rocephin 2 g IV daily. --Acute gastroenteritis Current Visit: Yes Status: Acute Normal saline at the rate of 100 cc/h. Protonix 40 mg p.o. daily. Zofran 4 mg IV every 6 hours as needed. We will monitor the patient closely --DVT prophylaxis Current Visit: Yes Status: Acute Subcu heparin We will closely monitor the patient and adjust management as needed Plan of care reviewed with the patient and her nurse Prolonged inpatient care I spent 35 minutes --Advance care plan; Hospitalist Physical - Constitutional Vitals: Temp Pulse Resp BP Pulse Ox 99.2 F 95 H 18 110/70 94 03/12/22 08:22 03/12/22 08:22 03/12/22 08:22 03/12/22 08:22 03/12/22 08:22 General appearance: Present: no acute distress, well-nourished HEART Score - HEART Score Troponin: Troponin T < 0.010 ng/mL (0.00-0.029) 03/11/22 09:04 Results - Labs CBC & Chem 7: 03/11/22 05:21 03/11/22 05:21 Labs: Laboratory Last Values WBC 3.7 K/mm3 (4.5-11.0) L 03/11/22 05:21 RBC 4.54 M/mm3 (3.65-5.03) 03/11/22 05:21 Hgb 14.0 gm/dl (10.1-14.3) 03/11/22 05:21 Hct 40.4 % (30.3-42.9) 03/11/22 05:21 MCV 89 fl (79-97) 03/11/22 05:21 MCH 31 pg (28-32) 03/11/22 05:21 MCHC 35 % (30-34) H 03/11/22 05:21 RDW 13.0 % (13.2-15.2) L 03/11/22 05:21 Plt Count 136 K/mm3 (140-440) L 03/11/22 05:21 Lymph % (Auto) 12.9 % (13.4-35.0) L 03/11/22 05:21 Carver % (Auto) 7.1 % (0.0-7.3) 03/11/22 05:21 Eos % (Auto) 0.1 % (0.0-4.3) 03/11/22 05:21 Baso % (Auto) 0.1 % (0.0-1.8) 03/11/22 05:21 Lymph # (Auto) 0.5 K/mm3 (1.2-5.4) L 03/11/22 05:21 Carver # (Auto) 0.3 K/mm3 (0.0-0.8) 03/11/22 05:21 Eos # (Auto) 0.0 K/mm3 (0.0-0.4) 03/11/22 05:21 Baso # (Auto) 0.0 K/mm3 (0.0-0.1) 03/11/22 05:21 Add Manual Diff Complete 03/10/22 20:35 Total Counted 100 03/10/22 20:35 Seg Neutrophils % 79.8 % (40.0-70.0) H 03/11/22 05:21 Seg Neuts % (Manual) 54.0 % (40.0-70.0) 03/10/22 20:35 Band Neutrophils % 35.0 % 03/10/22 20:35 Lymphocytes % (Manual) 4.0 % (13.4-35.0) L 03/10/22 20:35 Reactive Lymphs % (Man) 0 % 03/10/22 20:35 Monocytes % (Manual) 4.0 % (0.0-7.3) 03/10/22 20:35 Eosinophils % (Manual) 0 % (0.0-4.3) 03/10/22 20:35 Basophils % (Manual) 0 % (0.0-1.8) 03/10/22 20:35 Metamyelocytes % 2.0 % 03/10/22 20:35 Myelocytes % 1.0 % 03/10/22 20:35 Promyelocytes % 0 % 03/10/22 20:35 Blast Cells % 0 % 03/10/22 20:35 Nucleated RBC % Not Reportable 03/10/22 20:35 Seg Neutrophils # 2.9 K/mm3 (1.8-7.7) 03/11/22 05:21 Seg Neutrophils # Man 2.5 K/mm3 (1.8-7.7) 03/10/22 20:35 Band Neutrophils # 1.6 K/mm3 03/10/22 20:35 Lymphocytes # (Manual) 0.2 K/mm3 (1.2-5.4) L 03/10/22 20:35 Abs React Lymphs (Man) 0.0 K/mm3 03/10/22 20:35 Monocytes # (Manual) 0.2 K/mm3 (0.0-0.8) 03/10/22 20:35 Eosinophils # (Manual) 0.0 K/mm3 (0.0-0.4) 03/10/22 20:35 Basophils # (Manual) 0.0 K/mm3 (0.0-0.1) 03/10/22 20:35 Metamyelocytes # 0.1 K/mm3 03/10/22 20:35 Myelocytes # 0.0 K/mm3 03/10/22 20:35 Promyelocytes # 0.0 K/mm3 03/10/22 20:35 Blast Cells # 0.0 K/mm3 03/10/22 20:35 WBC Morphology Not Reportable 03/10/22 20:35 Hypersegmented Neuts Not Reportable 03/10/22 20:35 Hyposegmented Neuts Not Reportable 03/10/22 20:35 Hypogranular Neuts Not Reportable 03/10/22 20:35 Smudge Cells Not Reportable 03/10/22 20:35 Toxic Granulation Not Reportable 03/10/22 20:35 Toxic Vacuolation Not Reportable 03/10/22 20:35 Dohle Bodies Not Reportable 03/10/22 20:35 Pelger-Huet Anomaly Not Reportable 03/10/22 20:35 Lida Rods Not Reportable 03/10/22 20:35 Platelet Estimate Consistent w auto 03/10/22 20:35 Clumped Platelets Not Reportable 03/10/22 20:35 Plt Clumps, EDTA Not Reportable 03/10/22 20:35 Large Platelets Not Reportable 03/10/22 20:35 Giant Platelets Not Reportable 03/10/22 20:35 Platelet Satelliting Not Reportable 03/10/22 20:35 Plt Morphology Comment Not Reportable 03/10/22 20:35 RBC Morphology Not Reportable 03/10/22 20:35 Dimorphic RBCs Not Reportable 03/10/22 20:35 Polychromasia Not Reportable 03/10/22 20:35 Hypochromasia Not Reportable 03/10/22 20:35 Poikilocytosis Not Reportable 03/10/22 20:35 Anisocytosis Not Reportable 03/10/22 20:35 Microcytosis Few 03/10/22 20:35 Macrocytosis Not Reportable 03/10/22 20:35 Spherocytes Not Reportable 03/10/22 20:35 Pappenheimer Bodies Not Reportable 03/10/22 20:35 Sickle Cells Not Reportable 03/10/22 20:35 Target Cells Not Reportable 03/10/22 20:35 Tear Drop Cells Not Reportable 03/10/22 20:35 Ovalocytes Not Reportable 03/10/22 20:35 Helmet Cells Not Reportable 03/10/22 20:35 Mcclain-Buckhall Bodies Not Reportable 03/10/22 20:35 Zaleski Rings Not Reportable 03/10/22 20:35 Danie Cells Not Reportable 03/10/22 20:35 Bite Cells Not Reportable 03/10/22 20:35 Crenated Cell Not Reportable 03/10/22 20:35 Elliptocytes Not Reportable 03/10/22 20:35 Acanthocytes (Spur) Not Reportable 03/10/22 20:35 Rouleaux Not Reportable 03/10/22 20:35 Hemoglobin C Crystals Not Reportable 03/10/22 20:35 Schistocytes Not Reportable 03/10/22 20:35 Malaria parasites Not Reportable 03/10/22 20:35 Ari Bodies Not Reportable 03/10/22 20:35 Hem Pathologist Commnt No 03/10/22 20:35 Sodium 132 mmol/L (137-145) L 03/11/22 05:21 Potassium 2.7 mmol/L (3.6-5.0) L* D 03/11/22 05:21 Chloride 96.4 mmol/L (98-107) L 03/11/22 05:21 Carbon Dioxide 20 mmol/L (22-30) L 03/11/22 05:21 Anion Gap 18 mmol/L 03/11/22 05:21 BUN 7 mg/dL (7-17) 03/11/22 05:21 Creatinine 0.4 mg/dL (0.6-1.2) L 03/11/22 05:21 Estimated GFR > 60 ml/min 03/11/22 05:21 BUN/Creatinine Ratio 18 % 03/11/22 05:21 Glucose 111 mg/dL (65-100) H 03/11/22 05:21 POC Glucose 107 mg/dL (70-105) H 03/11/22 21:08 Lactic Acid 1.10 mmol/L (0.7-2.0) 03/10/22 20:59 Calcium 7.8 mg/dL (8.4-10.2) L 03/11/22 05:21 Magnesium 1.20 mg/dL (1.7-2.3) L 03/11/22 05:21 Total Bilirubin 0.60 mg/dL (0.1-1.2) 03/10/22 20:35 AST 36 units/L (5-40) 03/10/22 20:35 ALT 48 units/L (7-56) 03/10/22 20:35 Alkaline Phosphatase 98 units/L (35-129) 03/10/22 20:35 Troponin T < 0.010 ng/mL (0.00-0.029) 03/11/22 09:04 Total Protein 7.1 g/dL (6.3-8.2) 03/10/22 20:35 Albumin 4.8 g/dL (3.9-5) 03/10/22 20:35 Albumin/Globulin Ratio 2.1 % 03/10/22 20:35 TSH 0.563 mlU/mL (0.270-4.200) 03/10/22 20:35 HCG, Qual Negative (Negative) 03/10/22 20:35 Urine Color Yellow (Yellow) 03/10/22 Unknown Urine Turbidity Clear (Clear) 03/10/22 Unknown Urine pH 6.0 (5.0-7.0) 03/10/22 Unknown Ur Specific [place] 1.015 (1.003-1.030) 03/10/22 Unknown Urine Protein <15 mg/dl mg/dL (Negative) 03/10/22 Unknown Urine Glucose (UA) Neg mg/dL (Negative) 03/10/22 Unknown Urine Ketones Neg mg/dL (Negative) 03/10/22 Unknown Urine Blood Mod (Negative) 03/10/22 Unknown Urine Nitrite Neg (Negative) 03/10/22 Unknown Urine Bilirubin Neg (Negative) 03/10/22 Unknown Urine Urobilinogen < 2.0 mg/dL (<2.0) 03/10/22 Unknown Ur Leukocyte Esterase Neg (Negative) 03/10/22 Unknown Urine WBC (Auto) 1.0 /HPF (0.0-6.0) 03/10/22 Unknown Urine RBC (Auto) 3.0 /HPF (0.0-6.0) 03/10/22 Unknown U Epithel Cells (Auto) 1.0 /HPF (0-13.0) 03/10/22 Unknown Microbiology: Microbiology 03/10/22 20:59 Peripheral/Venous Blood Culture - Preliminary NO GROWTH AFTER 24 HOURS 03/10/22 20:59 Peripheral/Venous Blood Culture - Preliminary NO GROWTH AFTER 24 HOURS Lebron/IV: Voiding Method Toilet Active Medications - Current Medications Current Medications: Generic Name Dose Route Start Last Admin Trade Name Freq PRN Reason Stop Dose Admin Acetaminophen 650 mg 03/11/22 02:06 03/11/22 10:08 Acetaminophen 325 Mg Tab PO 650 mg Q6H PRN Administration Pain, Mild (1-3) Diltiazem HCl 30 mg 03/11/22 21:00 03/11/22 22:10 Diltiazem 30 Mg Tab PO 30 mg Q8H CHRIS Administration Heparin Sodium (Porcine) 5,000 unit 03/11/22 10:00 03/12/22 09:22 Heparin 5,000 Unit/1 Ml Vial SUB-Q 5,000 unit Q12HR CHRIS Administration Ceftriaxone Sodium 2 gm in 100 mls @ 200 mls/hr 03/11/22 03:00 03/12/22 03:10 Rocephin/Ns 2 Gm/100 Ml IV 100 mls/hr Q24H CHRIS Administration Protocol Potassium Chloride/Sodium Chloride 20 meq in 1,000 mls @ 100 mls/hr 03/11/22 12:00 03/11/22 23:03 Ns 0.45/Kcl 20meq IV 100 mls/hr DIRECT CHRIS Administration Lorazepam 0.5 mg 03/11/22 10:00 03/12/22 09:22 Lorazepam 0.5 Mg Tab PO 0.5 mg DAILY CHRIS Administration Miscellaneous Medication 50 mg 03/11/22 10:00 Pristiq PO DAILY CHRIS Morphine Sulfate 2 mg 03/11/22 02:06 Morphine 4 Mg/1 Ml Inj IV Q5MIN PRN Chest Pain unrelieved by NTG Pantoprazole Sodium 40 mg 03/11/22 10:00 03/12/22 09:22 Pantoprazole 40 Mg Tab PO 40 mg QDAY CHRIS Administration Quetiapine Fumarate 12.5 mg 03/11/22 22:00 03/11/22 22:11 Quetiapine 25 Mg Tab PO 12.5 mg QHS CHRIS Administration Sodium Chloride 10 ml 03/11/22 02:06 Sodium Chloride 0.9% 10 Ml Flush Syringe IV PRN PRN LINE FLUSH Tramadol HCl 50 mg 03/11/22 02:06 Tramadol 50 Mg Tab PO Q6H PRN Pain, Moderate (4-6)
--- NOTE | 2022-03-12 10:40 | Electrocardiograph Report ---
[facility] Test Date: 2022-03-10 Test Time: 20:14:38 Pat Name: PITA DAUGHERTY Department: Room: A481 1 Gender: F Quality Analyst/Technical Writer: EVELYN : 1995 Requested By: VALENTE KELLER III Order Number: [id number] Reading MD: Jorgito Jaramillo Measurements Intervals [place] Rate: 85 P: 18 IA: 117 QRS: 29 QRSD: 101 T: 11 QT: 453 QTc: 539 Interpretive Statements Sinus rhythm Supraventricular bigeminy Probable left atrial enlargement Prolonged QT interval No previous ECG available for comparison Electronically Signed On 03-12-2022 10:39:55 EDT by Jorgito Jaramillo
--- NOTE | 2022-03-12 10:43 | Electrocardiograph Report ---
[facility] Test Date: 2022-03-11 Test Time: 07:57:48 Pat Name: PITA DAUGHERTY Department: Room: A481 1 Gender: F Mixer Whipped Topping: EL : 1995 Requested By: JESSY LEOS Order Number: [id number] Reading MD: Jorgito Jaramillo Measurements Intervals [place] Rate: 97 P: 16 RI: 149 QRS: 12 QRSD: 103 T: -37 QT: 389 QTc: 489 Interpretive Statements Sinus rhythm Multiple ventricular premature complexes Nonspecific T abnormalities, inferior leads Compared to ECG 03/10/2022 20:14:38 Ventricular premature complex(es) now present T-wave abnormality now present Electronically Signed On 03-12-2022 10:42:43 EDT by Jorgito Jaramillo
--- NOTE | 2022-03-12 10:44 | Electrocardiograph Report ---
[facility] Test Date: 2022-03-11 Test Time: 10:55:36 Pat Name: PITA DAUGHERTY Department: Room: A481 1 Gender: F Finance Analyst: EL : 1995 Requested By: JESSY LEOS Order Number: [id number] Reading MD: Jorgito Jaramillo Measurements Intervals [place] Rate: 97 P: 19 [place]: 161 QRS: 23 QRSD: 94 T: -13 QT: 363 QTc: 466 Interpretive Statements Sinus rhythm Multiple ventricular premature complexes Compared to ECG 03/11/2022 07:57:48 T-wave abnormality no longer present Electronically Signed On 03-12-2022 10:44:06 EDT by Jorgito Jaramillo
[2022-03-12 10:49] LABS: Blood Urea Nitrogen 4 mg/dL (7-17); Calcium 8.3 mg/dL (8.4-10.2); Hemolysis Index 14
[2022-03-12 10:50] LABS: BUN/Creatinine Ratio 10
--- NOTE | 2022-03-12 13:29 | Progress Note ---
Assessment and Plan AF with RVR Gastroenteritis Severe hypokalemia Electrolytes improved Telemetry sinus rhythm currently Patient has stable cardiac status Recommend patient follow-up with cardiology in [place] No recommendation for oral anticoagulation as an outpatient. Subjective Date of service: 03/12/22 Interval history: Patient sitting up in bed without any complaints. Telemetry reveals normal sinus rhythm. Objective Vital Signs Temp Pulse Resp BP Pulse Ox 03/12/22 10:00 99 03/12/22 08:22 99.2 F 95 H 18 110/70 94 03/12/22 03:22 98.6 F 89 19 90/49 97 03/11/22 23:57 98.8 F 98 H 19 110/68 98 03/11/22 22:00 99 03/11/22 19:39 99.0 F 94 H 18 105/63 99 03/11/22 16:04 98.0 F 93 H 103/69 97 - Physical Examination HEENT: Positive: EOMI, Normocephaly Neck: Positive: neck supple, trachea midline. Negative: JVD/HJR Cardiac: Positive: Reg Rate and Rhythm Lungs: Positive: Normal Exam, clear to auscultation Neuro: Positive: Grossly Intact Abdomen: Positive: Soft Skin: Negative: Rash Musculoskeletal: No Pain, Normal Range of Motion Extremities: Present: lower extr. pulses. Absent: edema - Labs and Meds Comprehensive Metabolic Panel 03/12/22 Range/Units 09:59 Sodium 140 D (137-145) mmol/L Potassium 3.6 D (3.6-5.0) mmol/L Chloride 103.9 (98-107) mmol/L Carbon Dioxide 22 (22-30) mmol/L BUN 4 L (7-17) mg/dL Creatinine 0.4 L (0.6-1.2) mg/dL Glucose 98 (65-100) mg/dL Calcium 8.3 L (8.4-10.2) mg/dL - Imaging and Cardiology EKG: report reviewed, image reviewed Echo: report reviewed (EF 50-55%, impaired LV relaxation) - EKG Sinus rhythms and dysrhythmias: sinus rhythm Ventricular dysrhythmias: ventricular premature com
[2022-03-12] MEDS: dilTIAZem 30 MG TAB PO SCH (13:34)
[2022-03-12 13:41] VITALS: BP 129/85
--- NOTE | 2022-03-12 14:16 | Discharge Summary ---
Providers - Providers Date of Admission: 03/11/22 02:06 Date of discharge: 03/12/22 Attending physician: BLAKE MENENDEZ 03/11/22 Consult to Cardiac Rehabilitation [CONS] Routine Reason For Exam: Phase I 03/11/22 02:06 Consult to Cardiology [CONS] Routine Consulting Provider: BRIANDA ROSARIO Reason For Exam: a.fib Primary care physician: DAIRY NUTRITIONIST Hospitalization Condition: Critical Hospital course: -- Atrial fibrillation with RVR Current Visit: Yes Status: Acute Continue Cardizem drip is discontinued. Cardizem 30 mg p.o. every 6 hours. Follow echocardiogram for LV function Before considering anticoagulation per Chad2 scores serial cardiac enzymes. Cardiology evaluation --Severe hypokalemia; potassium 2.7 Current Visit: Yes Status: Acute Replenished with oral and IV KCl Closely monitor electrolytes Check magnesium levels --Hyponatremia; Current Visit: Yes Status: Acute Replenished with gentle hydration with normal saline Closely monitor electrolytes -- bilateral flank pain Current Visit: Yes Status: Acute CT abdomen and pelvis no acute abnormality noted Except some ovarian follicles Pain medications, patient was already started on empiric Rocephin Follow cultures --Urinary symptoms/possible urinary tract infection Current Visit: Yes Status: Acute Low-grade fever, suprapubic discomfort, empiric Rocephin Follow urine cultures --Febrile illness Current Visit: Yes Status: Acute Tylenol 650 mg p.o. every 6 hours as needed. Normal saline at the rate of 100 cc/h. Rocephin 2 g IV daily. --Acute gastroenteritis Current Visit: Yes Status: Acute Normal saline at the rate of 100 cc/h. Protonix 40 mg p.o. daily. Zofran 4 mg IV every 6 hours as needed. We will monitor the patient closely Disposition: 01 HOME / SELF CARE / HOMELESS Final Discharge Diagnosis (Prints w/discharge instructions): A. fib with rapid ventricular rate. Resolved now in sinus rhythm. severe hyperkalemia/corrected/resolved. Hyponatremia/resolved. Febrile illness/resolved. UTI. Hypomagnesemia corrected Time spent for discharge: 35 minutes Core Measure Documentation - Palliative Care Palliative Care/ Comfort Measures: Not Applicable - Core Measures Any of the following diagnoses?: none Exam - Constitutional Vitals: Temp Pulse Resp BP Pulse Ox 98.9 F 100 H 18 129/85 97 03/12/22 11:54 03/12/22 13:34 03/12/22 11:54 03/12/22 11:54 03/12/22 11:54 General appearance: Present: no acute distress, well-nourished - EENT Eyes: Present: PERRL, EOM intact - Neck Neck: Present: supple, normal ROM Plan Activity: advance as tolerated Diet: regular Additional Instructions: If you have worsening symptoms contact MD or go to the nearest emergency room as needed. Advised to follow-up with primary care physician in 1 week, follow cardiology per schedule. Advised to quit recreational drug use Follow up with: PRIMARY CARE, [Primary Care Provider] - 7 Days SILVIA CACERES MD [Staff Physician] - 14 Days Prescriptions: Magnesium Oxide [Mag-Ox] 400 mg PO QDAY #5 Pantoprazole [Protonix TAB] 40 mg PO QDAY #14 tablet
[2022-03-12] MEDS ORDERED: MAGNESIUM OXIDE 400 MG TAB PO SCH (15:00)
== END 2022-03-12 16:09 | disposition home or self-care (01) | DRG 392 ==
LOC: ED 19:53 → 4A 03-11 02:06
PROVIDERS: ADMIT Hospitalist; ATTEND Internal Medicine
DX: K52.9 Noninfective gastroenteritis and colitis, unspecified (principal); I48.91 Unspecified atrial fibrillation; E87.1 Hypo-osmolality and hyponatremia; N39.0 Urinary tract infection, site not specified; E87.6 Hypokalemia; E83.42 Hypomagnesemia
CPT/HCPCS: 36415; 71045; 74177; 80048; 80053; 81001; 82140; 82962; 83735; 84443; 84484; 84703; 85007; 85025; 87040; 93005; 93306; G0378; J3490; C8929; J0696; J1170; J1644; J2405; J3480; J7030; Q9967